=== PATIENT | female | born 1960 | race Caucasian/White ===

== ENCOUNTER → 2018-05-17 | Outpatient (CLI) | payer BC ==
[~2018-05-17] MED LIST: ARMOUR THYROID60 MG PO; ASPIR 8181 MG; BELVIQ PO; CEFUROXIME250 MG PO; GEMFIBROZIL600 MG PO; HYDROCHLOROTH12.5 MG PO; JANUVIA100 MG PO; LANTUS100 UNITS/ SC; LEVAQUIN500 MG PO; LEVEMIR100 UNIT/1 SQ; LOSARTAN-HCTZ1 EACH PO; METFORMIN HCL1000 MG PO; NOVOLIN R100 UNIT/1 SQ; NOVOLOG100 UNIT/1 SQ; OXYBUTYNIN CHLOR5 MG PO; PRAVASTATIN SOD40 MG PO; PROGESTERONE200 MG PO; TRULICITY SQ; VICTOZA SQ; VITAMIN D35000 UNIT PO; [UNRECOGNIZED DRUG - OTHER]; jenuvia PO; losartan PO; saxenda PO
--- NOTE | 2018-05-17 12:20 | Diagnostic Imaging Report ---
EXAM: CT Abdomen and Pelvis WITHOUT contrast INDICATION: Renal stone. COMPARISON: KUB 06/19/16. TECHNIQUE: Abdomen and pelvis were scanned utilizing a multidetector helical scanner from the lung base to the pubic symphysis without administration of IV contrast. Absence of intravenous contrast decreases sensitivity for detection of focal lesions and vascular pathology. Coronal and sagittal reformations were obtained. Renal stone protocol was performed. IV CONTRAST: None. RADIATION DOSE: Total DLP: 1162.4 mGy*cm COMPLICATIONS: None FINDINGS: LINES and TUBES: None. LOWER THORAX: Unremarkable HEPATOBILIARY: No focal hepatic lesions. No biliary ductal dilation. GALLBLADDER: No radio-opaque stones or sludge. No wall thickening. SPLEEN: No splenomegaly. PANCREAS: No focal masses or ductal dilatation. ADRENALS: No adrenal nodules KIDNEYS/URETERS: No hydronephrosis. No cystic or solid mass lesions. There is a 10 mm right lower pole renal stone and an adjacent 5 mm renal stone. There is a 2 mm punctate left mid pole renal stone. No evidence of ureteral stone. GI TRACT: No abnormal distention, wall thickening, or evidence of bowel obstruction. A small portion of the small bowel is excluded from the [id number]. Appendix is normal. PELVIC ORGANS/BLADDER: Unremarkable. LYMPH NODES: No lymphadenopathy. VESSELS: Moderate atherosclerotic changes within the abdominal aorta and branch vessels. PERITONEUM / RETROPERITONEUM: No free air or fluid. BONES/SOFT TISSUES: No acute bony abnormality. Moderate degenerative disc changes and grade 1 anterolisthesis of L5 on S1. IMPRESSION: Nonobstructing bilateral renal stones measuring up to 10 mm in the right lower pole and 2 mm in the left mid pole. Signed by: Dr. Khoa Pryor MD on 05/17/2018 12:16 PM
== END ==
LOC: CT 11:08
PROVIDERS: ATTEND Urology
DX: N20.0 Calculus of kidney (principal)
CPT/HCPCS: 74176

== ENCOUNTER → 2018-07-09 | Day surgery (SDC) | payer BC ==
[2018-07-07 17:44] LABS: ANION GAP 17.7 mmol/L (8-16); BLOOD UREA NITROGEN 25 mg/dL (7-26); BUN/CREATININE RATIO 30 (6-25); CALCIUM 10.5 mg/dL (8.4-10.2); CARBON DIOXIDE 23 mmol/L (22-29); CHLORIDE 99 mmol/L (98-107); CREATININE, SERUM 0.83 mg/dL (0.57-1.11); EST GLOMERULAR FILTRATION RATE > 60 ML/MIN (60-); GLUCOSE 112 mg/dL (74-118); POTASSIUM 3.7 mmol/L (3.5-5.1); SODIUM 136 mmol/L (136-145)
[~2018-07-09] MED LIST changes: +BELLADONNA/OPIUM 30 MG SUPP RC ONE; +CEFTRIAXONE SOD 1 GM/NS 50 ML 50 ML IV ONE; +DEXAMETHASONE SOD PHOS INJ 4 MG/ML VIAL ONE; +FENTANYL CITRATE/PF 100MCG/2 ML INJ ONE; +HUMALOG100 UNIT/3; +INSULIN REGULAR, HUMAN 100 UNIT/1 ML 3ML VIAL ONE; +IOPAMIDOL 610MG/1ML 300 MG/ML VIAL IV ONE; +LIDOCAINE HCL 2% LOCAL INJ 5 ML SDV VIAL INJ ONE; +METOCLOPRAMIDE HCL 10 MG/2ML VIAL ONE; +MIDAZOLAM HCL 2 MG/2 ML VIAL ONE; +ONDANSETRON HCL INJ 2MG/ML 2ML 2 MG/ML VIAL ONE; +PROPOFOL IV EMULSION 10 MG/ML 20 ML VIAL ONE; +SEVOFLURANE INHAL SOLN 250 ML PEN BTL ONE
--- OUTSIDE RECORDS SUMMARY | 2018-07-09 07:08 | XMS REPORT ---
Author Author Lora Silva [facility] eClinicalWorks Address Unknown Phone Unavailable Care Team Providers Care Department Store Door Greeter Name Role Phone Lora Silva CP Unavailable Allergies, Adverse Reactions, Alerts Substance Reaction Event Type Zolmitriptan Info Not Available Drug Allergy Problems Problem Type Condition Code Onset Dates Condition Status Assessment Type 2 diabetes mellitus with hyperglycemia E11.65 Active Problem Hypothyroidism, unspecified type E03.9 Active Problem Type 2 diabetes mellitus with mild nonproliferative diabetic retinopathy with macular edema, unspecified eye E11.3219 Active Assessment Morbid obesity E66.01 Active Assessment Mixed hyperlipidemia E78.2 Active Problem BMI 45.0-49.9, adult Z68.42 Active Problem Essential hypertension I10 Active Problem Morbid obesity E66.01 Active Problem Type 2 diabetes mellitus with hyperglycemia E11.65 Active Problem Other chronic pain G89.29 Active Problem 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 Z79.4 Active Problem Mixed hyperlipidemia E78.2 Active Medications Medication Code System Code Instructions Start Date End Date Status Dosage Trulicity 1.5mg [facility] 51581047820 1.5mg/0.5mL SQ once per week Mar 18, 2018 Active 1 Humalog KwikPen [facility] 86741539772 100 UNIT/ML Subcutaneous TID with meals Active 4 units Cinnamon ND 59113161190 500 MG Orally Active not defined Losartan Potassium-HCTZ ND 83461895555 50-12.5 MG Orally Once a day Active 1 tablet Vitamin D3 ND 22564708627 1000 UNIT Orally Once a day Active 1 capsule Lantus SoloStar ND 19618161416 100 UNIT/ML Subcutaneous daily Active 25 units Chromium Picolinate ND 53131164338 200 MCG Orally Active not defined Multivitamin [facility] 93604-65974 - Orally Active not defined Duexis [facility] 91780526100 800-26.6 MG Orally Three times a day Mar 18, 2018 Active 1 tablet CoQ-10 [facility] 38067898665 30 MG Orally Once a day Active 1 capsule with a meal Gemfibrozil [facility] 37492319396 600 MG Orally Twice a day Active 1 tablet Magnesium [facility] 75717105865 300 MG Orally Once a day Active 1 capsule with a meal Jardiance [facility] 92795432835 10 mg Orally Once a day Mar 18, 2018 Active 1 tablet Metformin HCl [facility] 30699608152 1000 mg Orally twice a day (bid) Active 1 tablet Retsof Thyroid [facility] 74121507190 90 MG Orally Once a day Active 1 tablet Vital Signs Date/Time: May 21, 2017 BMI 49.74 Index Weight 272 lbs Height 62 in Cardiac Monitoring Heart Rate 88 /min Blood Pressure Diastolic 76 mm Hg Blood Pressure Systolic 122 mm Hg Results No Known Results Summary Purpose eClinicalWorks Submission
--- OUTSIDE RECORDS SUMMARY | 2018-07-09 07:08 | XMS REPORT ---
Author Author Lora Silva [facility] eClinicalWorks Address Unknown Phone Unavailable Care Team Providers Care Wagon Person Name Role Phone Lora Silva CP Unavailable Allergies No Known Allergies Problems Problem Type Condition Code Onset Dates Condition Status Problem Type 2 diabetes mellitus with mild nonproliferative diabetic retinopathy with macular edema, unspecified eye E11.3219 Active Problem Other chronic pain G89.29 Active Problem Hypothyroidism, unspecified type E03.9 Active Assessment Type 2 diabetes mellitus with hyperglycemia E11.65 Active Problem Morbid obesity E66.01 Active Problem BMI 45.0-49.9, adult Z68.42 Active Problem Chronic fatigue R53.82 Active Problem Mixed hyperlipidemia E78.2 Active Problem Type 2 diabetes mellitus with hyperglycemia E11.65 Active Problem Essential hypertension I10 Active Problem superintendent terminal current use of insulin Z79.4 Active Medications Medication Code System Code Instructions Start Date End Date Status Dosage Humalog KwikPen [facility] [id number] 100 UNIT/ML Subcutaneous TID with meals Active 10 -15 units Results No Known Results Summary Purpose eClinicalWorks Submission
--- OUTSIDE RECORDS SUMMARY | 2018-07-09 07:08 | XMS REPORT ---
Author Author Lora Silva [facility] eClinicalWorks Address Unknown Phone Unavailable Care Team Providers Care Tooling Inspector Name Role Phone Lora Silva CP Unavailable Allergies No Known Allergies Problems Problem Type Condition Code Onset Dates Condition Status Problem Mixed hyperlipidemia E78.2 Active Problem Essential hypertension I10 Active Problem snf current use of insulin Z79.4 Active Problem History of kidney stones Z87.442 Active Problem Primary insomnia F51.01 Active Problem Diabetes mellitus with hyperglycemia E11.65 Active Problem Morbid obesity E66.01 Active Problem BMI 45.0-49.9, adult Z68.42 Active Problem Obstructive sleep apnea G47.33 Active Problem Chronic fatigue R53.82 Active Problem Type 2 diabetes mellitus with mild nonproliferative diabetic retinopathy with macular edema, unspecified eye E11.3219 Active Problem Hypothyroidism, unspecified type E03.9 Active Assessment Diabetes mellitus with hyperglycemia E11.65 Active Problem Other chronic pain G89.29 Active Problem Type 2 diabetes mellitus with hyperglycemia E11.65 Active Medications No Known Medications Results No Known Results Summary Purpose eClinicalWorks Submission
--- OUTSIDE RECORDS SUMMARY | 2018-07-09 07:08 | XMS REPORT | Continuity of Care Document ---
Author Author [facility] Interface Address Unknown Phone Unavailable Problems Problem Status Onset Date Classification Date Reported Comments Source Body mass index 40+ - severely obese 04/26/2018 Diagnosis 04/26/2018 [facility] Abnormal blood pressure 04/26/2018 Diagnosis 04/26/2018 [facility] Seasonal allergic rhinitis 04/26/2018 Diagnosis 04/26/2018 [facility] Acute maxillary sinusitis 04/26/2018 Diagnosis 04/26/2018 [facility] Diabetes Mellitus 04/26/2018 Problem 04/26/2018 [facility] Hypercholesterolemia 04/26/2018 Problem 04/26/2018 [facility] Hypertensive Disorder 04/26/2018 Problem 04/26/2018 [facility] Allergic rhinitis 06/17/2017 Diagnosis 06/17/2017 [facility] Hordeolum externum of upper eyelid 06/17/2017 Diagnosis 06/17/2017 [facility] Essential hypertension 06/17/2017 Diagnosis 06/17/2017 [facility] Hyperlipidemia 06/17/2017 Diagnosis 06/17/2017 [facility] Type 2 diabetes mellitus without complication 06/17/2017 Diagnosis 06/17/2017 [facility] Type 2 diabetes mellitus with hyperglycemia Active Problem 07/08/2018 [facility] Hypothyroidism, unspecified type Active Problem 07/08/2018 [facility] Type 2 diabetes mellitus with mild nonproliferative diabetic retinopathy with macular edema, unspecified eye Active Problem 07/08/2018 [facility] Essential hypertension Active Problem 07/08/2018 [facility] Obesity, morbid, BMI 40.0-49.9 Active Problem 05/21/2017 [facility] BMI 45.0-49.9, adult Active Problem 07/08/2018 [facility] Other chronic pain Active Problem 07/08/2018 [facility] prison current use of insulin Active Problem 07/08/2018 [facility] Mixed hyperlipidemia Active Problem 07/08/2018 [facility] Morbid obesity Active Problem 07/08/2018 [facility] Chronic fatigue Active Problem 07/08/2018 [facility] Obstructive sleep apnea Active Problem 07/08/2018 [facility] Hordeolum of left eye, unspecified eyelid, unspecified hordeolum type Active Diagnosis 06/27/2017 [facility] Tachycardia Active Diagnosis 10/06/2017 [facility] Vomiting, intractability of vomiting not specified, presence of nausea not specified, unspecified vomiting type Active Diagnosis 10/06/2017 [facility] Gastroenteritis Active Diagnosis 10/06/2017 [facility] Primary insomnia Active Problem 07/08/2018 [facility] History of kidney stones Active Problem 07/08/2018 [facility] Diabetes mellitus with hyperglycemia Active Problem 07/08/2018 [facility] Left medial knee pain Active Diagnosis 03/24/2018 [facility] Acute Sinusitis Problem 06/17/2017 [facility] Acute Pharyngitis Problem 06/17/2017 [facility] Medications Medication Details Route Status Patient Instructions Ordering Provider Order Date Source Trulicity 1.5mg 1.5mg/1 pen SQ Active 1.5mg/0.5mL SQ Once a week Benavides 07/07/2018 [facility] Needle (Disp) as directed DX:E11.65 Active 31G X 5/16" DX:E11.65 four times a day (qid) Carlos 06/11/2018 [facility] Tizanidine HCl 1 tablet by mouth Active 4 mg by mouth once every night Carlos 03/23/2018 [facility] Trulicity 1.5mg 1 SQ Active 1.5mg/0.5mL SQ once per week Carlos 03/18/2018 [facility] Duexis 1 tablet Orally Active 800-26.6 MG Orally PRN Carlos 03/18/2018 [facility] Jardiance 1 tablet Orally Active 10 mg Orally Once a day Carlos 03/18/2018 [facility] HydrOXYzine HCl 1 tablet as needed Orally Active 10 mg Orally at HS PRN Carlos 02/25/2018 [facility] Tobramycin Sulfate 1 application Ophthalmic Active 0.3 % Ophthalmic Twice a day to affected eye Carlos 06/24/2017 [facility] Humalog KwikPen 10 -15 units Subcutaneous Active 100 UNIT/ML Subcutaneous TID with meals Carlos [facility] Cinnamon not defined Orally Active 500 MG Orally Carlos [facility] Losartan Potassium-HCTZ 1 tablet Orally Active 50-12.5 MG Orally Once a day Carlos [facility] Vitamin D3 1 capsule Orally Active 1000 UNIT Orally Once a day Carlos [facility] Lantus SoloStar 14 units Subcutaneous Active 100 UNIT/ML Subcutaneous twice a day (bid) Carlos [facility] Chromium Picolinate not defined Orally Active 200 MCG Orally Carlos [facility] Multivitamin not defined Orally Active - Orally Carlos [facility] CoQ-10 1 capsule with a meal Orally Active 30 MG Orally Once a day Carlos [facility] Gemfibrozil 1 tablet Orally Active 600 MG Orally Twice a day Carlos [facility] Magnesium 1 capsule with a meal Orally Active 300 MG Orally Once a day Carlos [facility] Metformin HCl 1 tablet Orally Active 1000 mg Orally twice a day (bid) Carlos [facility] [place] Thyroid 1 tablet Orally Active 90 MG Orally Once a day Carlos [facility] Erythromycin 1 application to affected area Externally Active 2 % Externally four times a day Ferdinand Ortiz [facility] Humalog KwikPen 10 -15 units Subcutaneous Active 100 UNIT/ML Subcutaneous TID with meals Ferdinand Ortiz [facility] HydrOXYzine HCl 1 tablet as needed Orally Active 10 mg Orally at HS PRN Carlos [facility] thyroid (PRISON) 90 MG Oral Tablet [[place] Thyroid] [place] Thyroid 90 mg tablet TK 1 T PO QD Active [facility] armour thyroid 90 mg tabs armour thyroid 90 mg tabs Active [facility] Amoxicillin 875 MG / Clavulanate 125 MG Oral Tablet [Augmentin] Augmentin 875 mg-125 mg tablet Take 1 tablet every 12 hours by oral route after meals for 7 days. Active [facility] Azelastine hydrochloride 0.5 MG/ML Ophthalmic Solution azelastine 0.05 % eye drops INSTILL 1 DROP INTO BOTH EYES BY OPHTHALMIC ROUTE 2 TIMES PER DAY x 10 DAYS Active [facility] azelastine hcl 0.1 % soln azelastine hcl 0.1 % soln Active [facility] Famotidine 26.6 MG / Ibuprofen 800 MG Oral Tablet [Duexis] Duexis 800 mg-26.6 mg tablet Active [facility] fluticasone propionate 50 mcg/act susp fluticasone propionate 50 mcg/act susp Active [facility] Gemfibrozil 600 MG Oral Tablet gemfibrozil 600 mg tablet TK 1 T PO BID Active [facility] gemfibrozil 600 mg tabs gemfibrozil 600 mg tabs Active [facility] 3 ML Insulin Lispro 100 UNT/ML Pen Injector [Humalog] Humalog KwikPen (U-100) Insulin 100 unit/mL subcutaneous INJ 10 -15 UNITS UNDER THE SKIN TID WITH MEALS Active [facility] humalog kwikpen 100 unit/ml sopn humalog kwikpen 100 unit/ml sopn Active [facility] Hydroxyzine Hydrochloride 10 MG Oral Tablet hydroxyzine HCl 10 mg tablet TK 1 T PO HS PRN Active [facility] hydroxyzine hcl 10 mg tabs hydroxyzine hcl 10 mg tabs Active [facility] empagliflozin 10 MG Oral Tablet [Jardiance] Jardiance 10 mg tablet TK 1 T PO QD Active [facility] jardiance 10 mg tabs jardiance 10 mg tabs Active [facility] lantus solostar 100 unit/ml sopn lantus solostar 100 unit/ml sopn Active [facility] 3 ML Insulin Glargine 100 UNT/ML Pen Injector [Lantus] Lantus Solostar U-100 Insulin 100 unit/mL (3 mL) subcutaneous pen USE 25 UNITS SC QD Active [facility] Hydrochlorothiazide 12.5 MG / Losartan Potassium 50 MG Oral Tablet losartan 50 mg-hydrochlorothiazide 12.5 mg tablet TK 1 T PO QD Active [facility] losartan/hct tab 50-12.5 losartan/hct tab 50-12.5 Active [facility] Metformin hydrochloride 1000 MG Oral Tablet metformin 1,000 mg tablet TK 1 T PO BID Active [facility] metformin hcl 1000 mg tabs metformin hcl 1000 mg tabs Active [facility] tizanidine 4 MG Oral Tablet tizanidine 4 mg tablet TK 1 T PO Q NIGHT Active [facility] tizanidine hcl 4 mg tabs tizanidine hcl 4 mg tabs Active [facility] 0.5 ML dulaglutide 3 MG/ML Auto-Injector [Trulicity] Trulicity 1.5 mg/0.5 mL subcutaneous pen injector INJECT THE CONTENTS OF 1 PEN UNDER THE SKIN ONCE A WEEK Active [facility] trulicity 1.5 mg/0.5ml sopn trulicity 1.5 mg/0.5ml sopn Active [facility] Acetaminophen 300 MG / Codeine Phosphate 30 MG Oral Tablet acetaminophen 300 mg-codeine 30 mg tablet TK ONE TABLET PO EVERY 4 HOURS PRN FOR PAIN Active [facility] Azelastine hydrochloride 0.137 MG/ACTUAT Metered Dose Nasal [place] azelastine 137 mcg (0.1 %) nasal spray aerosol [place] 2 sprays twice a day by intranasal route as directed for 30 days. Active [facility] BD Insulin Pen Needle UF Short 31 gauge x 5/16" BD Insulin Pen Needle UF Short 31 gauge x 5/16" U UTD QID Active [facility] Erythromycin 0.005 MG/MG Ophthalmic Ointment erythromycin 5 mg/gram (0.5 %) eye ointment APPLY 1 CM RIBBON INTO AND ONTO THE UPPER EYELID IN THE AFFECTED EYE(S) BY OPHTHALMIC ROUTE 4 TIMES PER DAY x 7 days Active [facility] Fluticasone propionate 0.05 MG/ACTUAT Metered Dose Nasal [place] fluticasone 50 mcg/actuation nasal spray,suspension [place] 2 sprays every day by intranasal route as needed for 10 days. Active [facility] NovoTwist 32 gauge x 1/5" needle NovoTwist 32 gauge x 1/5" needle Active [facility] tizanidine 4 MG Oral Capsule tizanidine 4 mg capsule TAKE 1 C PO TID PRN Active [facility] Allergies, Adverse Reactions, Alerts Substance Category Reaction Severity Reaction type Status Date Reported Comments Source Tagamet Allergy to substance 05/04/2013 [facility] Zomig Allergy to substance 05/04/2013 [facility] Zolmitriptan Adverse Reaction Info Not Available Adverse Reaction Active 03/22/2018 [facility] Immunizations Immunization Date Given Site Status Last Updated Comments Source Results Order Name Results Value Reference Range Date Interpretation Comments Source Influenza A negative 04/26/2018 [facility] Influenza B negative 04/26/2018 [facility] Vital Signs Vital Sign Value Date Comments Source Diastolic (mm Hg) 86 04/26/2018 [facility] Height 62 04/26/2018 [facility] Systolic (mm Hg) 132 04/26/2018 [facility] Weight 277 04/26/2018 [facility] Weight 280 03/22/2018 [facility] Height 62 03/22/2018 [facility] Heart Rate 90 03/22/2018 [facility] Diastolic (mm Hg) 86 03/22/2018 [facility] Systolic (mm Hg) 124 03/22/2018 [facility] Weight 272 02/25/2018 [facility] Height 62 02/25/2018 [facility] Heart Rate 102 02/25/2018 [facility] Diastolic (mm Hg) 64 02/25/2018 [facility] Systolic (mm Hg) 100 02/25/2018 [facility] Weight 278 10/01/2017 [facility] Height 62 10/01/2017 [facility] Temperature Oral (F) 98.7 F 10/01/2017 [facility] Heart Rate 107 10/01/2017 [facility] Diastolic (mm Hg) 66 10/01/2017 [facility] Systolic (mm Hg) 110 10/01/2017 [facility] Diastolic (mm Hg) 70 06/24/2017 [facility] Systolic (mm Hg) 128 06/24/2017 [facility] Height 62 06/24/2017 [facility] Heart Rate 107 06/24/2017 [facility] Diastolic (mm Hg) 84 06/17/2017 [facility] Height 62 06/17/2017 [facility] Systolic (mm Hg) 128 06/17/2017 [facility] Weight 265 06/17/2017 [facility] Weight 272 05/21/2017 [facility] Height 62 05/21/2017 [facility] Heart Rate 88 05/21/2017 [facility] Diastolic (mm Hg) 76 05/21/2017 [facility] Systolic (mm Hg) 122 05/21/2017 [facility] Encounters Location Location Details Encounter Type Encounter Number Reason For Visit Attending Provider ADM Date DC Date Status Source [place] - [facility] - [id number] ANN SorensenP-C[facility] [address] [address], Ph. [id number] Lois Santillan 06/17/2017 [facility] [place] [facility] - [id number] Marion Dinh, MECHANICAL ENGINEERING OFFICER: [address] [place] [address], Ph. [id number] Marion Dinh 04/26/2018 [facility] Procedures Procedure Code Date Perfomer Comments Source [facility] Tonsillectomy [facility]
--- OUTSIDE RECORDS SUMMARY | 2018-07-09 07:08 | XMS REPORT ---
Author Author Lora Silva [facility] eClinicalWorks Address Unknown Phone Unavailable Care Team Providers Care Solar Sales Energy Advisor Name Role Phone Lora Silva CP Unavailable Allergies No Known Allergies Problems Problem Type Condition Code Onset Dates Condition Status Assessment Type 2 diabetes mellitus with hyperglycemia E11.65 Active Problem Hypothyroidism, unspecified type E03.9 Active Problem Type 2 diabetes mellitus with mild nonproliferative diabetic retinopathy with macular edema, unspecified eye E11.3219 Active Problem Essential hypertension I10 Active Problem Obesity, morbid, BMI 40.0-49.9 E66.01 Active Problem BMI 45.0-49.9, adult Z68.42 Active Problem Type 2 diabetes mellitus with hyperglycemia E11.65 Active Problem Other chronic pain G89.29 Active Problem terminal worker current use of insulin Z79.4 Active Problem Mixed hyperlipidemia E78.2 Active Medications No Known Medications Results No Known Results Summary Purpose [facility] [employer] Submission
--- OUTSIDE RECORDS SUMMARY | 2018-07-09 07:08 | XMS REPORT ---
Author Author Gerhard Gonzalez Organization eClinicalWorks Address Unknown Phone Unavailable Care Team Providers Care Materials Director Name Role Phone Gerhard Gonzalez CP Unavailable Allergies No Known Allergies Problems Problem Type Condition Code Onset Dates Condition Status Problem Mixed hyperlipidemia E78.2 Active Problem Essential hypertension I10 Active Problem roasterman current use of insulin Z79.4 Active Problem [...] Problem Hypothyroidism, unspecified type E03.9 Active Problem Other chronic pain G89.29 Active Problem Type 2 diabetes mellitus with hyperglycemia E11.65 Active Medications Medication Code System Code Instructions Start Date End Date Status Dosage Trulicity 1.5mg [facility] [id number] 1.5mg/0.5mL SQ Once a week Jul 07, 2018 Jan 03, 2019 Active 1.5mg/1 pen Results No Known Results Summary Purpose eClinicalWorks Submission
--- OUTSIDE RECORDS SUMMARY | 2018-07-09 07:09 | XMS REPORT ---
Author Gerhard Coats Organization eClinical[employer] Address Unknown Phone Unavailable Care Team Providers Care Technology Resource Teacher Name Role Phone Gerhard Gonzalez CP Unavailable Allergies, Adverse Reactions, Alerts Substance Reaction Event Type Zolmitriptan Info Not Available Drug Allergy Problems Problem Type Condition Code Onset Dates Condition Status Problem Other chronic pain G89.29 Active Problem Mixed hyperlipidemia E78.2 Active Problem Type 2 diabetes mellitus with hyperglycemia E11.65 Active Problem Obstructive sleep apnea G47.33 Active Problem Chronic fatigue R53.82 Active Problem Primary insomnia F51.01 Active Problem Essential hypertension I10 Active Problem 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 Z79.4 Active Problem Morbid obesity E66.01 Active Problem BMI 45.0-49.9, adult Z68.42 Active Assessment Essential hypertension I10 Active Assessment BMI 45.0-49.9, adult Z68.42 Active Assessment Primary insomnia F51.01 Active Assessment Hypothyroidism, unspecified type E03.9 Active Assessment 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 Z79.4 Active Assessment Type 2 diabetes mellitus with hyperglycemia E11.65 Active Assessment Chronic fatigue R53.82 Active Problem Type 2 diabetes mellitus with mild nonproliferative diabetic retinopathy with macular edema, unspecified eye E11.3219 Active Assessment Obstructive sleep apnea G47.33 Active Problem Hypothyroidism, unspecified type E03.9 Active Medications Medication Code System Code Instructions Start Date End Date Status Dosage [place] Thyroid [facility] 61383890391 90 MG Orally Once a day Active 1 tablet Losartan Potassium-HCTZ ND 44136759713 50-12.5 MG Orally Once a day Active 1 tablet Cinnamon ND 29994462487 500 MG Orally Active not defined Duexis [facility] 83691293704 800-26.6 MG Orally PRN Mar 18, 2018 Active 1 tablet Trulicity 1.5mg [facility] 47644997877 1.5mg/0.5mL SQ once per week Mar 18, 2018 Active 1 HydrOXYzine HCl [facility] 75281445471 10 mg Orally at HS PRN Feb 25, 2018 Active 1 tablet as needed Jardiance NDC 65033863904 10 mg Orally Once a day Mar 18, 2018 Active 1 tablet Multivitamin [facility] [address] - Orally Active not defined Vitamin D3 [facility] 62202922291 1000 UNIT Orally Once a day Active 1 capsule Magnesium [facility] 07943381826 300 MG Orally Once a day Active 1 capsule with a meal CoQ-10 [facility] 66684007314 30 MG Orally Once a day Active 1 capsule with a meal Metformin HCl [facility] 26464134663 1000 mg Orally twice a day (bid) Active 1 tablet Lantus SoloStar [facility] 26050169624 100 UNIT/ML Subcutaneous daily Active 25 units Chromium Picolinate [facility] 71006676746 200 MCG Orally Active not defined Humalog KwikPen [facility] 34139009127 100 UNIT/ML Subcutaneous TID with meals Active 10 -15 units Gemfibrozil [facility] 36392764593 600 MG Orally Twice a day Active 1 tablet Humalog KwikPen [facility] 44291033840 100 UNIT/ML Subcutaneous TID with meals Active 10 -15 units Tobramycin Sulfate [facility] [address]-94 0.3 % Ophthalmic Twice a day to affected eye Jun 24, 2017 Active 1 application Vital Signs Date/Time: Feb 25, 2018 BMI 49.74 Index Weight 272 lbs Height 62 in Cardiac Monitoring Heart Rate 102 /min Blood Pressure Diastolic 64 mm Hg Blood Pressure Systolic 100 mm Hg Results No Known Results Summary Purpose eClinicalWorks Submission
--- OUTSIDE RECORDS SUMMARY | 2018-07-09 07:09 | XMS REPORT ---
Author Author Gerhard Gonzalez Organization [employer] Address Unknown Phone Unavailable Care Team Providers Care Machine Shorthand Teacher Name Role Phone Gerhard Gonzalez CP Unavailable Allergies, Adverse Reactions, Alerts Substance Reaction Event Type Zolmitriptan Info Not Available Drug Allergy Problems Problem Type Condition Code Onset Dates Condition Status Problem Type 2 diabetes mellitus with hyperglycemia E11.65 Active Problem senior living current use of insulin Z79.4 Active Problem Mixed hyperlipidemia E78.2 Active Problem Primary insomnia F51.01 Active Assessment Hypothyroidism, unspecified type E03.9 Active Problem Obstructive sleep apnea G47.33 Active Assessment Primary insomnia F51.01 Active Assessment Mixed hyperlipidemia E78.2 Active Problem History of kidney stones Z87.442 Active Problem BMI 45.0-49.9, adult Z68.42 Active Problem Essential hypertension I10 Active Problem Chronic fatigue R53.82 Active Problem Morbid obesity E66.01 Active Assessment Chronic fatigue R53.82 Active Assessment Obstructive sleep apnea G47.33 Active Assessment Essential hypertension I10 Active Assessment BMI 45.0-49.9, adult Z68.42 Active Problem Type 2 diabetes mellitus with mild nonproliferative diabetic retinopathy with macular edema, unspecified eye E11.3219 Active Assessment Left medial knee pain M25.562 Active 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.4 Active Problem Hypothyroidism, unspecified type E03.9 Active Assessment History of kidney stones Z87.442 Active Assessment Type 2 diabetes mellitus with hyperglycemia E11.65 Active Problem Other chronic pain G89.29 Active Medications Medication Code System Code Instructions Start Date End Date Status Dosage Magnesium [facility] 12650456456 300 MG Orally Once a day Active 1 capsule with a meal Gemfibrozil [facility] 87780037133 600 MG Orally Twice a day Active 1 tablet Chromium Picolinate [facility] 80581659388 200 MCG Orally Active not defined Tobramycin Sulfate [facility] [address]-30 0.3 % Ophthalmic Twice a day to affected eye Jun 24, 2017 Active 1 application Metformin HCl [facility] 21264083075 1000 mg Orally twice a day (bid) Active 1 tablet HydrOXYzine HCl [facility] 48405554226 10 mg Orally at HS PRN Active 1 tablet as needed [place] Thyroid [facility] 54197391674 90 MG Orally Once a day Active 1 tablet Multivitamin [facility] 59645-[address]38 - Orally Active not defined Vitamin D3 [facility] 80841032685 1000 UNIT Orally Once a day Active 1 capsule Humalog KwikPen [facility] 93344374953 100 UNIT/ML Subcutaneous TID with meals Active 10 -15 units Losartan Potassium-HCTZ [facility] 02300389051 50-12.5 MG Orally Once a day Active 1 tablet CoQ-10 [facility] 74620737314 30 MG Orally Once a day Active 1 capsule with a meal Lantus SoloStar [facility] 93637919996 100 UNIT/ML Subcutaneous twice a day (bid) Active 14 units Cinnamon [facility] 41996342555 500 MG Orally Active not defined Vital Signs Date/Time: Mar 22, 2018 BMI 51.21 Index Weight 280 lbs Height 62 in Cardiac Monitoring Heart Rate 90 /min Blood Pressure Diastolic 86 mm Hg Blood Pressure Systolic 124 mm Hg Results No Known Results Summary Purpose eClinicalWorks Submission
--- OUTSIDE RECORDS SUMMARY | 2018-07-09 07:09 | XMS REPORT ---
Author Author Lora Silva [facility] eClinicalWorks Address Unknown Phone Unavailable Care Team Providers Care Owner/Photographer Name Role Phone Lora Silva CP Unavailable Allergies No Known Allergies Problems Problem Type Condition Code Onset Dates Condition Status Problem Type 2 diabetes mellitus with hyperglycemia E11.65 Active Problem residential current use of insulin Z79.4 Active Problem Mixed hyperlipidemia E78.2 Active Problem Primary insomnia F51.01 Active Problem Obstructive sleep apnea G47.33 Active Problem History of kidney stones Z87.442 Active Problem BMI 45.0-49.9, adult Z68.42 Active Problem Essential hypertension I10 Active Problem Chronic fatigue R53.82 Active Problem Morbid obesity E66.01 Active Problem Type 2 diabetes mellitus with mild nonproliferative diabetic retinopathy with macular edema, unspecified eye E11.3219 Active Problem Hypothyroidism, unspecified type E03.9 Active Problem Other chronic pain G89.29 Active Medications No Known Medications Results No Known Results Summary Purpose eClinicalWorks Submission
--- OUTSIDE RECORDS SUMMARY | 2018-07-09 07:09 | XMS REPORT ---
Author Author Lora Silva [facility] eClinicalWorks Address Unknown Phone Unavailable Care Team Providers Care Parish Worker Name Role Phone Lora Silva CP Unavailable Allergies No Known Allergies Problems Problem Type Condition Code Onset Dates Condition Status Problem Type 2 diabetes mellitus with hyperglycemia E11.65 Active Problem alf current use of insulin Z79.4 Active Problem [...]
--- OUTSIDE RECORDS SUMMARY | 2018-07-09 07:09 | XMS REPORT ---
Author [facility] Address Unknown Phone Unavailable Care Team Providers Care Sheet Metal Assembler Name Role Phone DELANEY RANDOLPH Unavailable Unavailable Problems This patient has no known problems. Allergies, Adverse Reactions, Alerts This patient has no known allergies or adverse reactions. Medications This patient has no known medications. Results Test Description Test Time Test Comments Text Results Atomic Results Result Comments CT ABDOMEN/PELVIS WO 2018-05-17 12:09:00 [place] [address] Patient Name: MYA SIDDIQUI MR #: [id number] : 1960 Age/Sex: 57/F Req #: [id number] [facility] Physician: Ordered by: DELANEY RANDOLPH MD Report #: [id number] Location: CT Room/Bed: Procedure: [id number] CT/CT ABDOMEN/PELVIS WO Exam Date: 05/17/18 Exam Time: 1150 REPORT STATUS: Signed EXAM: CT Abdomen and Pelvis WITHOUT contrast INDICATION: Renal stone. COMPARISON: KUB 06/19/16. TECHNIQUE: Abdomen and pelvis were scanned utilizing a multidetector helical scanner from the lung base to the pubic symphysis without administration of IV contrast. Absence of intravenous contrast decreases sensitivity for detection of focal lesions and vascular pathology. Coronal and sagittal reformations were obtained. Renal stone protocol was performed. IV CONTRAST: None. RADIATION DOSE: Total DLP: 1162.4 mGy*cm COMPLICATIONS: None FINDINGS: LINES and TUBES: None. LOWER THORAX: Unremarkable HEPATOBILIARY: No focal hepatic lesions. No biliary ductal dilation. GALLBLADDER: No radio-opaque stones or sludge. No wall thickening. SPLEEN: No splenomegaly. PANCREAS: No focal masses or ductal dilatation. ADRENALS: No adrenal nodules KIDNEYS/URETERS: No hydronephrosis. No cystic or solid mass lesions. There is a 10 mm right lower pole renal stone and an adjacent 5 mm renal stone. There is a 2 mm punctate left mid pole renal stone. No evidence of ureteral stone. GI TRACT: No abnormal distention, wall thickening, or evidence of bowel obstruction. A small portion of the small bowel is excluded from the lxpiq-eb-xfjc. Appendix is normal. PELVIC ORGANS/BLADDER: Unremarkable. LYMPH NODES: No lymphadenopathy. VESSELS: Moderate atherosclerotic changes within the abdominal aorta and branch vessels. PERITONEUM / RETROPERITONEUM: No free air or fluid. BONES/SOFT TISSUES: No acute bony abnormality. Moderate degenerative disc changes and grade 1 anterolisthesis of L5 on S1. IMPRESSION: Nonobstructing bilateral renal stones measuring up to 10 mm in the right lower pole and 2 mm in the left mid pole. Signed by: Dr. Sancho Ragland MD on 05/17/2018 12:16 PM Dictated By: SANCHO RAGLAND MD [id number] Transcribed By: SADI on 05/17/18 1216 COPY TO: DELANEY RANDOLPH MD
--- OUTSIDE RECORDS SUMMARY | 2018-07-09 07:09 | XMS REPORT ---
Author Author Lora Silva [facility] eClinicalWorks Address Unknown Phone Unavailable Care Team Providers Care Automation Developer Name Role Phone Lora Silva CP Unavailable Allergies No Known Allergies Problems Problem Type Condition Code Onset Dates Condition Status Problem Type 2 diabetes mellitus with hyperglycemia E11.65 Active Problem care home current use of insulin Z79.4 Active Problem [...]
--- OUTSIDE RECORDS SUMMARY | 2018-07-09 07:09 | XMS REPORT ---
Author Author Lora Silva [facility] eClinicalWorks Address Unknown Phone Unavailable Care Team Providers Care Food And Beverage Order Clerk Name Role Phone Lora Silva CP Unavailable Allergies No Known Allergies Problems Problem Type Condition Code Onset Dates Condition Status Problem Type 2 diabetes mellitus with hyperglycemia E11.65 Active Problem terminal worker current use of [...] Medications Results No Known Results Summary Purpose [employer] Submission
--- OUTSIDE RECORDS SUMMARY | 2018-07-09 07:09 | XMS REPORT | Encounter Summary ---
Author Organization Unknown Address [address] [place] [address] Phone [phone] Care Team Providers Care Printing Machine Operator Tape Rules Name Role Phone Lora Aden 3 [phone] Reason for Visit Medical Complaint Instructions 1. Acute maxillary sinusitis rapid flu (A+B) Augmentin 875 mg-125 mg tablet 2. Seasonal allergic rhinitis azelastine 0.05 % eye drops 3. Abnormal blood pressure 4. Body mass index 40+ - severely obese A healthy lifestyle: care instructions Discussion Note: None recorded. Plan of Care Patient Instructions Ok to use flonase and azelastine nasal spray at home as directed by your pcp. Ok to take zyrtec 10mg daily x 7-14 days for allergies. If not improve [id number], call clinic or see pcp. Continue to check your bp at home. If trend over 140s/90s, follow up with pcp. Reminders Provider Appointments None recorded. Lab Rapid Flu (A+B) 04/26/2018 [facility] Referral None recorded. Procedures None recorded. Surgeries None recorded. Imaging None recorded. Medications Name Start Date [place] Thyroid 90 mg tablet TK 1 T PO QD armour thyroid 90 mg tabs Augmentin 875 mg-125 mg tablet Take 1 tablet every 12 hours by oral route after meals for 7 days. azelastine 0.05 % eye drops INSTILL 1 DROP INTO BOTH EYES BY OPHTHALMIC ROUTE 2 TIMES PER DAY x 10 DAYS azelastine hcl 0.1 % soln Duexis 800 mg-26.6 mg tablet fluticasone propionate 50 mcg/act susp gemfibrozil 600 mg tablet TK 1 T PO BID gemfibrozil 600 mg tabs Humalog KwikPen (U-100) Insulin 100 unit/mL subcutaneous INJ 10 -15 UNITS UNDER THE SKIN TID WITH MEALS humalog kwikpen 100 unit/ml sopn hydroxyzine HCl 10 mg tablet TK 1 T PO HS PRN hydroxyzine hcl 10 mg tabs Jardiance 10 mg tablet TK 1 T PO QD jardiance 10 mg tabs lantus solostar 100 unit/ml sopn Lantus Solostar U-100 Insulin 100 unit/mL (3 mL) subcutaneous pen USE 25 UNITS SC QD losartan 50 mg-hydrochlorothiazide 12.5 mg tablet TK 1 T PO QD losartan/hct tab 50-12.5 metformin 1,000 mg tablet TK 1 T PO BID metformin hcl 1000 mg tabs tizanidine 4 mg tablet TK 1 T PO Q NIGHT tizanidine hcl 4 mg tabs Trulicity 1.5 mg/0.5 mL subcutaneous pen injector INJECT THE CONTENTS OF 1 PEN UNDER THE SKIN ONCE A WEEK trulicity 1.5 mg/0.5ml sopn Medications Administered None recorded. Vitals Height Weight BMI Blood Pressure 5 ft 2 in 277 lbs 50.7 kg/m2 (1) 132/84 mm[Hg] (2) 132/86 mm[Hg] Lab Results Date Name Specimen Result Interpretation Description Value Range Status Address Rapid Flu (A+B) Influenza a negative [facility]: [address] [place] [address] Influenza B negative [facility]: [address] [place] [address] Allergies Code Code System Name Reaction Severity Status Onset Tagamet Active 849177 RxNorm Zomig Active Problems Name Status Onset Date Source Diabetes Mellitus Active 04/26/2018 Hypercholesterolemia Active 04/26/2018 Hypertensive Disorder Active 04/26/2018 Procedures Date Name Performed by Information not available Tonsillectomy Information not available Vaccine List None recorded. Social History Smoking Status Never Smoker Past Encounters 04/26/2018 Acute Maxillary Sinusitis; Seasonal Allergic Rhinitis; Abnormal Blood Pressure; Body Mass Index 40+ - Severely Obese MARY ANN [facility]acock[facility]: [address] [facility] [place] [address], Ph. History of Present Illness Nrkoz-Pxgpxydxvl-[id number] Reported By: Patient HPI: Location: head/sinuses. Quality: productive cough, colored phlegm, nasal/sinus congestion. Duration: 5days. Severity: moderate. Onset/Timing: sudden. Context: no sick contacts, no foreign travel, non-smoker, allergies. Modifying factors: OTC medication. Associated Symptoms: no shortness of breath, no wheezing, no change in number of pillows needed to sleep at night, no sweats, no significant weight gain, no significant weight loss, no morning cough, no sore throat, no vomiting, no diarrhea, no rash, no nausea, no fever, no muscle aches, yellow- green, thick sputum, headache; itchy eyes Review of Systems Basic Reported By: Patient Constitutional: Constitutional: no fever Eyes: Eyes: irritation Ohre-Fyml-Quxxa-Throat: Ears: no ear complaints. Nose: nose/sinus problems. Mouth/Throat: no sore throat, no bleeding gums, no mouth complaints, no teeth problems Cardiovascular: Cardiovascular: no chest pain, no shortness of breath, no known heart murmur Respiratory: Respiratory: no wheezing, no shortness of breath, cough Gastrointestinal: Gastrointestinal: no abdominal pain, no vomiting / diarrhea Genitourinary: Genitourinary: no urinary complaints, no discharge Musculoskeletal: Musculoskeletal: no muscle aches, no muscle weakness, no arthralgias/joint pain, no back pain Skin: Skin: no abnormal / changing mole, no jaundice, no rashes Neurologic: Neurologic: no loss of consciousness, no weakness, no numbness, no seizures, no dizziness, no headaches, headache Physical Exam Adult Basic, 14-21 Yr Male, Adult Female Complete Reported By: Patient Constitutional: General Appearance: obese. Level of Distress: NAD Psychiatric: Mental Status: active and alert, normal affect, normal mood. Orientation: to time, to place, to person Eyes: Lids and Conjunctivae: non-injected, no discharge. Pupils: equal size, round, reactive to light. Sclerae: non-icteric Oxa-Duaf-Xqnsu-Throat: Ears: no lesions on external ear, no outer ear tenderness, EACs clear, TMs clear, middle ear fluid. Nose: no lesions on external nose, nares patent, no septal deviation, nasal passages clear, sinus tenderness, nasal discharge--purulent, post nasal drip. Lips, Teeth, and Gums: no mouth or lip ulcers, no bleeding gums, normal dentition. Oropharynx: moist mucous membranes, no erythema, no exudates, tonsils absent Neck: Neck: supple, trachea midline, no masses, FROM. Lymph Nodes: no cervical LAD, no supraclavicular LAD. Thyroid: no enlargement, non-tender, no nodules, no asymmetry Lungs: Respiratory effort: no tachypnea. Auscultation: clear to auscultation, no wheezing, no rales/crackles, no rhonchi, no retractions Cardiovascular: Heart Auscultation: no murmurs, no gallops, no rub. Apical impulse: not displaced. Rate and rhythm: regular
--- OUTSIDE RECORDS SUMMARY | 2018-07-09 07:09 | XMS REPORT ---
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
--- OUTSIDE RECORDS SUMMARY | 2018-07-09 07:09 | XMS REPORT ---
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
--- OUTSIDE RECORDS SUMMARY | 2018-07-09 07:09 | XMS REPORT ---
Author Author Lora Silva [facility] [place] eClinicalWorks Address Unknown Phone Unavailable Care Team Providers Care Spectrographic Analyst Name Role Phone Lora Silva CP Unavailable Allergies, Adverse Reactions, Alerts Substance Reaction Event Type Zolmitriptan Info Not Available Drug Allergy Problems Problem Type Condition Code Onset Dates Condition Status Assessment Essential hypertension I10 Active Problem Hypothyroidism, unspecified type E03.9 Active Problem Type 2 diabetes mellitus with mild nonproliferative diabetic retinopathy with macular edema, unspecified eye E11.3219 Active Problem BMI 45.0-49.9, adult Z68.42 Active Problem Essential hypertension I10 Active Problem Morbid obesity E66.01 Active Problem Type 2 diabetes mellitus with hyperglycemia E11.65 Active Problem Other chronic pain G89.29 Active Problem prison current use of insulin Z79.4 Active Problem Mixed hyperlipidemia E78.2 Active Assessment Mixed hyperlipidemia E78.2 Active Assessment Hypothyroidism, unspecified type E03.9 Active Assessment Type 2 diabetes mellitus with mild nonproliferative diabetic retinopathy with macular edema, unspecified eye E11.3219 Active Assessment Hordeolum of left eye, unspecified eyelid, unspecified hordeolum type H00.016 Active Assessment Type 2 diabetes mellitus with hyperglycemia E11.65 Active Medications Medication Code System Code Instructions Start Date End Date Status Dosage Gemfibrozil [facility] 63794948588 600 MG Orally Twice a day Active 1 tablet Lantus SoloStar [facility] 93221254927 100 UNIT/ML Subcutaneous daily Active 25 units Chromium Picolinate [facility] 91825932146 200 MCG Orally Active not defined [place] Thyroid ND 86362377179 90 MG Orally Once a day Active 1 tablet Multivitamin [facility] 25[address]88 - Orally Active not defined Humalog KwikPen [facility] 10594062614 100 UNIT/ML Subcutaneous TID with meals Active 4 units Vitamin D3 [facility] 17037567338 1000 UNIT Orally Once a day Active 1 capsule Cinnamon [facility] 10750487403 500 MG Orally Active not defined Duexis [facility] 63280588117 800-26.6 MG Orally PRN Mar 18, 2018 Active 1 tablet Losartan Potassium-HCTZ [facility] 16108192446 50-12.5 MG Orally Once a day Active 1 tablet Tobramycin Sulfate [facility] [address]-06 0.3 % Ophthalmic Twice a day to affected eye Jun 24, 2017 Active 1 application Trulicity 1.5mg [facility] 52863198044 1.5mg/0.5mL SQ once per week Mar 18, 2018 Active 1 Magnesium [facility] 88112509671 300 MG Orally Once a day Active 1 capsule with a meal Erythromycin [facility] [address]-42 2 % Externally four times a day Inactive 1 application to affected area Jardiance [facility] 45306496300 10 mg Orally Once a day Mar 18, 2018 Active 1 tablet Metformin HCl [facility] 14654076238 1000 mg Orally twice a day (bid) Active 1 tablet CoQ-10 [facility] 18321168629 30 MG Orally Once a day Active 1 capsule with a meal Vital Signs Date/Time: Jun 24, 2017 Blood Pressure Diastolic 70 mm Hg Blood Pressure Systolic 128 mm Hg Height 62 in Cardiac Monitoring Heart Rate 107 /min Results No Known Results Summary Purpose eClinicalWorks Submission
--- OUTSIDE RECORDS SUMMARY | 2018-07-09 07:09 | XMS REPORT ---
Author Author Lora Silva Organization eClinicalWorks Address Unknown Phone Unavailable Care Team Providers Care Film Numberer Name Role Phone Lora Silva CP Unavailable Allergies No Known Allergies Problems Problem Type Condition Code Onset Dates Condition Status Problem Hypothyroidism, unspecified type E03.9 Active Problem Type 2 diabetes mellitus with hyperglycemia E11.65 Active Problem Other chronic pain G89.29 Active Assessment Obstructive sleep apnea G47.33 Active Problem Type 2 diabetes mellitus with mild nonproliferative diabetic retinopathy with macular edema, unspecified eye E11.3219 Active Problem Chronic fatigue R53.82 Active Problem Morbid obesity E66.01 Active Problem Obstructive sleep apnea G47.33 Active Problem correction current use of insulin Z79.4 Active Problem Mixed hyperlipidemia E78.2 Active Problem BMI 45.0-49.9, adult Z68.42 Active Problem Essential hypertension I10 Active Medications No Known Medications Results No Known Results Summary Purpose eClinicalWorks Submission
--- OUTSIDE RECORDS SUMMARY | 2018-07-09 07:09 | XMS REPORT ---
Author Author Lora Silva Organization eClinicalWorks Address Unknown Phone Unavailable Care Team Providers Care Wet Finisher Wool Name Role Phone Lora Silva CP Unavailable [...] Problem Obstructive sleep apnea G47.33 Active Problem jail current use of insulin Z79.4 Active Problem Mixed hyperlipidemia E78.2 Active Problem BMI 45.0-49.9, adult Z68.42 Active Problem Essential hypertension I10 Active Medications No Known Medications Results No Known Results Summary Purpose eClinicalWorks Submission
--- OUTSIDE RECORDS SUMMARY | 2018-07-09 07:09 | XMS REPORT ---
Author Author Lora Silva [facility] eClinicalWorks Address Unknown Phone Unavailable Care Team Providers Care Utilization Reviewer Name Role Phone Lora Silva CP Unavailable Allergies, Adverse Reactions, Alerts Substance Reaction Event Type Zolmitriptan Info Not Available Drug Allergy Problems Problem Type Condition Code Onset Dates Condition Status Problem Type 2 diabetes mellitus with mild nonproliferative diabetic retinopathy with macular edema, unspecified eye E11.3219 Active Problem Other chronic pain G89.29 Active Problem Hypothyroidism, unspecified type E03.9 Active Problem Morbid obesity E66.01 Active Problem BMI 45.0-49.9, adult Z68.42 Active Problem Chronic fatigue R53.82 Active Problem Mixed hyperlipidemia E78.2 Active Problem Type 2 diabetes mellitus with hyperglycemia E11.65 Active Problem Essential hypertension I10 Active Problem rn urgent care current use of insulin Z79.4 Active Assessment Tachycardia R00.0 Active Assessment Vomiting, intractability of vomiting not specified, presence of nausea not specified, unspecified vomiting type R11.10 Active Assessment Hypothyroidism, unspecified type E03.9 Active Assessment Chronic fatigue R53.82 Active Assessment Essential hypertension I10 Active Assessment Gastroenteritis K52.9 Active Assessment Type 2 diabetes mellitus with mild nonproliferative diabetic retinopathy with macular edema, unspecified eye E11.3219 Active Medications Medication Code System Code Instructions Start Date End Date Status Dosage Metformin HCl [facility] 43238375879 1000 mg Orally twice a day (bid) Active 1 tablet Tobramycin Sulfate [facility] [address]-60 0.3 % Ophthalmic Twice a day to affected eye Jun 24, 2017 Active 1 application Vitamin D3 ND 91496469457 1000 UNIT Orally Once a day Active 1 capsule Duexis [facility] 64644686651 800-26.6 MG Orally PRN Mar 18, 2018 Active 1 tablet Multivitamin [facility] [address] - Orally Active not defined Lantus SoloStar [facility] 12205954896 100 UNIT/ML Subcutaneous daily Active 25 units Chromium Picolinate [facility] 37677089174 200 MCG Orally Active not defined Cinnamon ND 24361901049 500 MG Orally Active not defined Jardiance [facility] 09850543704 10 mg Orally Once a day Mar 18, 2018 Active 1 tablet Losartan Potassium-HCTZ [facility] 54886991892 50-12.5 MG Orally Once a day Active 1 tablet Gemfibrozil [facility] 84811981793 600 MG Orally Twice a day Active 1 tablet Bishop Thyroid [facility] 20355475135 90 MG Orally Once a day Active 1 tablet Magnesium [facility] 35523825004 300 MG Orally Once a day Active 1 capsule with a meal Humalog KwikPen [facility] [address]-36 100 UNIT/ML Subcutaneous TID with meals Active 10 -15 units Trulicity 1.5mg [facility] 60855155125 1.5mg/0.5mL SQ once per week Mar 18, 2018 Active 1 CoQ-10 [facility] 27607520571 30 MG Orally Once a day Active 1 capsule with a meal Vital Signs Date/Time: October 01, 2017 BMI 50.84 Index Weight 278 lbs Height 62 in Temperature 98.7 F Cardiac Monitoring Heart Rate 107 /min Blood Pressure Diastolic 66 mm Hg Blood Pressure Systolic 110 mm Hg Results Name Result Date Reference Range Unit Abnormality Flag Hemoglobin A1c ----Hemoglobin A1c 7.3 20171001 4.8-5.6 % H Comp. Metabolic Panel (14) ----A/G Ratio 1.6 20171001 1.2-2.2 ----Globulin, Total 2.5 20171001 1.5-4.5 g/dL ----Alkaline Phosphatase 64 20171001 39-117 IU/L ----Bilirubin, Total <0.2 20171001 0.0-1.2 mg/dL ----Chloride 107 20171001 96-106 mmol/L H ----ALT (SGPT) 29 20171001 0-32 IU/L ----Potassium 3.6 20171001 3.5-5.2 mmol/L ----AST (SGOT) 24 20171001 0-40 IU/L ----Sodium 143 20171001 134-144 mmol/L ----BUN/Creatinine Ratio 24 20171001 9-23 H ----eGFR If Africn Am 118 20171001 >59 mL/min/1.73 ----Calcium 9.2 20171001 8.7-10.2 mg/dL ----Carbon Dioxide, Total 24 20171001 18-29 mmol/L ----Albumin 4.0 20171001 3.5-5.5 g/dL ----Protein, Total 6.5 20171001 6.0-8.5 g/dL ----Glucose 107 20171001 65-99 mg/dL H ----BUN 14 20171001 6-24 mg/dL ----Creatinine 0.59 20171001 0.57-1.00 mg/dL ----eGFR If NonAfricn Am 103 20171001 >59 mL/min/1.73 CBC ----MCHC 31.4 20171005 ----MCH 30.8 20171005 ----Platelets 267 20171005 ----RDW 13.2 20171005 ----NEUTROPHILS lym- 1.4,mid- 0.6, gra- 2.4 20171005 ----Hematocrit 44.2 20171005 ----MCV 98.1 20171005 ----RBC 4.51 20171005 ----Hemoglobin 13.9 20171005 ----WBC 4.4L 20171005 Summary Purpose eClinicalWorks Submission
--- OUTSIDE RECORDS SUMMARY | 2018-07-09 07:09 | XMS REPORT | Encounter Summary ---
Author Organization Unknown Address [address] [place] [id number] Phone [phone] Care Team Providers Care Cutter Banana Room Name Role Phone Lora Aden 3 [phone] Reason for Visit Left Medical Complaint Instructions 1. Allergic rhinitis allergies: care instructions fluticasone 50 mcg/actuation nasal spray,suspension azelastine 137 mcg (0.1 %) nasal spray aerosol 2. Hordeolum externum of upper eyelid erythromycin 5 mg/gram (0.5 %) eye ointment 3. Body mass index 40+ - severely obese 4. Essential hypertension high blood pressure: care instructions 5. Hyperlipidemia high cholesterol: care instructions 6. Type 2 diabetes mellitus without complication type 2 diabetes: care instructions Discussion Note Pt is in NAD; Verbalizes understanding of all instructions with no questions at this time. Plan of Care Patient Instructions Proper hand hygiene after contact with eyes, do not share pillows/clothing. Do not not wear any contacts and or makeup for the next 7 days. Use a different tissue to clean each eye. Apply topical antibiotic as directed. You will become non- contagious after 28 hrs of proper antibiotic use. Alternate with Ibuprofen and acetaminophen every 4hrs as needed for pain. Start warm compresses. Take medications as prescribed. Return to clinic or follow up with your PCP or community administrator within 2-3 days if symptoms worsen as discussed. Report to ER in case of emergency, sharp eye pain or vision loss. Use fluticasone and azelastine nasal sprays as directed for nasal congestion and runny nose. Take over the counter Xyzal for allergy like symptoms like runny nose, sneezing and watery eyes. Take medications as prescribed and follow up with a PCP or equipment specialist within 2-3 if symptoms worsen as discussed. Recommend monitor BP and blood sugars at home and document, bring BP and blood sugar log to PCP for review. Recommend follow a low sodium diet and exercise 30-45 mins/d 3-4 days a week. Reminders Provider Appointments None recorded. Lab None recorded. Referral None recorded. Procedures None recorded. Surgeries None recorded. Imaging None recorded. Medications Name Start Date acetaminophen 300 mg-codeine 30 mg tablet TK ONE TABLET PO EVERY 4 HOURS PRN FOR PAIN [place] Thyroid 90 mg tablet TK 1 T PO QD armour thyroid 90 mg tabs azelastine 137 mcg (0.1 %) nasal spray aerosol [place] 2 sprays twice a day by intranasal route as directed for 30 days. BD Insulin Pen Needle UF Short 31 gauge x 5/16" U UTD QID Duexis 800 mg-26.6 mg tablet erythromycin 5 mg/gram (0.5 %) eye ointment APPLY 1 CM RIBBON INTO AND ONTO THE UPPER EYELID IN THE AFFECTED EYE(S) BY OPHTHALMIC ROUTE 4 TIMES PER DAY x 7 days fluticasone 50 mcg/actuation nasal spray,suspension [place] 2 sprays every day by intranasal route as needed for 10 days. gemfibrozil 600 mg tablet TK 1 T PO BID humalog kwikpen 100 unit/ml sopn Jardiance 10 mg tablet TK 1 T PO QD Lantus Solostar 100 unit/mL (3 mL) subcutaneous insulin pen USE 25 UNITS SC QD losartan 50 mg-hydrochlorothiazide 12.5 mg tablet TK 1 T PO QD losartan/hct tab 50-12.5 metformin 1,000 mg tablet TK 1 T PO BID NovoTwist 32 gauge x 1/5" needle tizanidine 4 mg capsule TAKE 1 C PO TID PRN Trulicity 1.5 mg/0.5 mL subcutaneous pen injector INJ CONTENTS OF 1 PEN UNDER THE SKIN Q WEEK trulicity 1.5 mg/0.5ml sopn Medications Administered None recorded. Vitals Height Weight BMI Blood Pressure 5 ft 2 in 265 lbs 48.5 kg/m2 128/84 mm[Hg] Lab Results None recorded. Allergies Code Code System Name Reaction Severity Status Onset Tagamet Active 326400 RxNorm Zomig Active Problems Name Status Onset Date Source Acute Sinusitis Active Encounter Acute Pharyngitis Active Encounter Procedures Date Name Performed by Information not available Tonsillectomy Information not available Vaccine List None recorded. Social History Smoking Status Never Smoker Past Encounters 06/17/2017 Allergic Rhinitis; Hordeolum Externum of Upper Eyelid; Body Mass Index 40+ - Severely Obese; Essential Hypertension; Hyperlipidemia; Type 2 Diabetes Mellitus without Complication MARY ANN KeaneP-C: [address] [place] [address], Ph. History of Present Illness Eye Complaint Reported By: Patient HPI: Location: left. Quality: ; tender. Severity: pain level 3/10. Duration constant. Onset/Timing: first episode, gradual onset, x 3days. Context no previous history of Iritis, no previous history of recurrent corneal erosion, no one else with similar symptoms, Seasonal Allergies; Pt has h/o HTN, HLD, and type II DM managed by her PCP. Modifying factors nothing gives relief. Associated Symptoms: vision intact, no sensitivity to light, no foreign body sensation in eyes, no pain in the eyes, no pain with eye movement, no discharge from eyes, no headache, no fever/chills, no muscle aches; nasal congestion, rhinorrhea, sneezing and edematous and erythematous nodular lesion on left upper eyelid (laterally) Gmarj-Kahhsebxtq-Gyglvrs Reported By: Patient HPI: Location: head/sinuses. Quality: nasal/sinus congestion. Duration: 3days. Severity: moderate. Onset/Timing: gradual. Context: no sick contacts, no foreign travel, non-smoker, allergies; Pt has h/o HTN, HLD, and type II DM managed by her PCP. Modifying factors: ; None. Associated Symptoms: no sputum production, no shortness of breath, no wheezing, no change in number of pillows needed to sleep at night, no sweats, no significant weight gain, no significant weight loss, no morning cough, no sore throat, no vomiting, no diarrhea, no rash, no nausea, no fever, no muscle aches, no headache; nasal congestion, rhinorrhea, sneezing and edema and erythema of left upper eyelid x 3 days Review of Systems:ROS as noted in the HPI Review of Systems Basic Reported By: Patient Physical Exam Adult Basic, 14-21 Yr Male, Adult Female Complete, 7-10 Yr Female Reported By: Patient Constitutional: General Appearance: obese. Level of Distress: NAD. Ambulation: ambulating normally Psychiatric: Mental Status: active and alert, normal affect, normal mood. Orientation: to time, to place, to person Eyes: Lids and Conjunctivae: non-injected, no discharge, no pallor; left upper eyelid with 0.5x0.5 nodular edematous and erythematous lesion. Area is warm to the touch and tender (laterally) to touch lesion. No pus. Pupils: PERRLA, equal size, round, reactive to light. Corneas: grossly intact. EOM: EOMI. Sclerae: non-icteric. Vision: ; Peripheral vision normal bilaterally Fpj-Grbj-Aiyug-Throat: Ears: no lesions on external ear, no outer ear tenderness, EACs clear, TMs clear. Hearing: no hearing loss. Nose: no lesions on external nose, nares patent, no septal deviation, nasal passages clear, no sinus tenderness, nasal discharge--rhinorrhea, post nasal drip; pale and edematous nasal turbinates bilaterally. Lips, Teeth, and Gums: no mouth or lip ulcers, no bleeding gums, normal dentition. Oropharynx: moist mucous membranes, no erythema, no exudates, tonsils absent. Tonsils: no erythema, no exudate Neck: Lymph Nodes: no cervical LAD Lungs: Respiratory effort: no dyspnea, no tachypnea, no use of accessory muscles, no intercostal retractions. Auscultation: breath sounds normal, clear to auscultation, no wheezing, no rales/crackles, no rhonchi, no retractions Cardiovascular: Heart Auscultation: RRR, no murmurs Neurologic: Gait and Station: normal gait, normal station Skin: Inspection and palpation: no rash
--- NOTE | 2018-07-09 09:14 | Diagnostic Imaging Report ---
EXAM: ABDOMEN-1VIEW (KUB) DATE: 07/09/2018 8:11 AM INDICATION: Preop ESWL COMPARISON: CT abdomen/pelvis, 05/17/2018 FINDINGS: 2 supine views of the abdomen show a normal distribution of air in the small and large bowel. There is a 10 mm calcification projected on the lower pole of the right kidney, partially obscured by respiratory motion. This is compatible with the calculus seen on previous CT. No other abnormal soft tissue calcification is identified. The 5 mm right lower pole calculus and 2 mm mid left renal calculus are not identified and may be obscured by motion or overlying bowel material. Lung bases appear clear. IMPRESSION: 1. No bowel dilatation or evidence for obstruction. 2. There is a 10 mm calcification at the lower pole right kidney compatible with calculus seen on previous CT. This is partially obscured by respiratory motion. Other calculi noted on the CT are not visualized. Signed by: Dr. Monty Mahmood M.D. on 07/09/2018 9:10 AM
[2018-07-09 11:15] VITALS: BP 119/76
--- NOTE | 2018-07-19 02:10 | Operative Report ---
DATE OF PROCEDURE: 07/09/2018 SURGEON: Guillermo Duran MD PREOPERATIVE DIAGNOSES: 1. Right nephrolithiasis. 2. Right renal colic. 3. Urinary tract infections. 4. Mixed type urinary incontinence. POSTOPERATIVE DIAGNOSES: 1. Right nephrolithiasis. 2. Right renal colic. 3. Urinary tract infections. 4. Mixed type urinary incontinence. 5. Mild cystocele. 6. Mild rectocele. 7. Atrophic (senile) vaginitis. OPERATIONS PERFORMED: Note, these are all staged procedures as part of a multi-stage and multi-step process in managing the patient's urolithiasis. 1. Right-sided extracorporeal shockwave lithotripsy (surgery performed for the right nephrolithiasis). 2. Cystourethroscopy with bilateral ureteral catheterization and retrograde ureteropyelography (surgery performed for the urinary tract infections). 3. Interpretation of retrograde ureteropyelography. 4. Supervision of fluoroscopy, no radiologist present. 5. Cystourethroscopy with insertion of right indwelling ureteral stent (separate surgery performed to prevent renal colic as the patient passes her stone fragments). 6. Pelvic examination under anesthesia. ANESTHESIA: General. COMPLICATIONS: None. CLINICAL SUMMARY: Paty Song is a 57-year-old woman with bilateral nephrolithiasis and urinary tract infection. She is brought for the above procedures. She is aware of the risks of bleeding, infection, injury to adjacent structures, and need for additional procedures and elected to proceed. OPERATIVE PROCEDURE IN DETAIL: Informed consent was verified. Paty Song was properly identified, taken to the operating room, and placed on the lithotripsy table in supine position. Anesthesia was uneventfully begun. The patient's right large 15 mm nephrolithiasis was localized with biplanar fluoroscopy. A total of 3000 shocks were delivered with excellent fragmentation noted. The patient was then carefully gently repositioned in the dorsal lithotomy position. All pressure points well padded. Her genitalia were prepared and draped in usual sterile fashion. A 22.5-T[place] cystoscope sheath was inserted into the patient's urethra and bladder was drained. Panendoscopy revealed no suspicions mucosal lesions, no tumors, no stones, and no diverticulum. Normally positioned configured ureteral orifices were identified. The ureteral catheter was used to cannulate each ureter and retrograde ureteropyelograms were performed. With cystoscopic and fluoroscopic guidance, the right-sided indwelling ureteral stent was then placed. It was curled in the patient's kidney as well as the patient's bladder. The retaining suture was cut short. Interpretation of Retrograde Ureteropyelography: Contrast was instilled in retrograde fashion bilaterally. On the left side, we could not visualize the 2 mm stone noted on CT. We, however, were able to visualize the filling defects in the right kidney corresponding to stone debris as well as blood clots from the lithotripsy. The stent was in good position, coiled the patient's kidneys as well as the patient's bladder at the end of the case. The patient's bladder was then drained and cystoscope was withdrawn. Pelvic examination revealed atrophic vaginitis with a grade 1 cystorectocele. No suspicious mucosal lesions were identified. There were no abnormal palpable pelvic masses could be appreciated. The patient was then uneventfully reversed from anesthesia and taken to the recovery room in stable condition. There were no complications to the procedure. She tolerated the procedure well. Plans will be to return the patient back to the operating room in several weeks to remove her stent, performing right ureteroscopy and indicated procedures. Guillermo Duran MD [place]/VISHAL /[id number]
== END | disposition home or self-care (01) ==
LOC: OR 07:05
PROVIDERS: ATTEND Urology
DX: N20.0 Calculus of kidney (principal); N23 Unspecified renal colic; N39.0 Urinary tract infection, site not specified; N39.46 Mixed incontinence; N81.10 Cystocele, unspecified; N81.6 Rectocele; N95.2 Postmenopausal atrophic vaginitis; Z01.812 Encounter for preprocedural laboratory examination
CPT/HCPCS: 36415 ×2; 50590; 52332; 74018; 80048; 82948; 93005; C2617; J0696; J1100; J2001; J2250; J2405; J2704; J2765; Q9967

== ENCOUNTER → 2018-07-30 | Day surgery (SDC) | payer BC ==
--- NOTE | 2018-07-28 13:08 | Diagnostic Imaging Report ---
EXAMINATION: CHEST 2 VIEWS INDICATION: Pre-admit. COMPARISON: CT Abdomen/Pelvis 05/17/2018 and KUB 07/09/18. FINDINGS: TUBES and LINES: None. LUNGS: Lungs are well inflated. Lungs are clear. There is no evidence of pneumonia or pulmonary edema. PLEURA: No pleural effusion or pneumothorax. HEART AND MEDIASTINUM: The cardiomediastinal silhouette is unremarkable. BONES AND SOFT TISSUES: No acute osseous lesion. Soft tissues are unremarkable. UPPER ABDOMEN: No free air under the diaphragm. IMPRESSION: No acute radiographic abnormality. Signed by: Dr. Khoa Pryor MD on 07/28/2018 1:05 PM
[~2018-07-30] MED LIST changes: +GENTAMICIN 80MG/NS 100 ML 200 ML IV ONE; +GLYCOPYRROLATE INJ 1MG/ 5 ML SYR ONE; -INSULIN REGULAR, HUMAN 100 UNIT/1 ML 3ML VIAL ONE; -METOCLOPRAMIDE HCL 10 MG/2ML VIAL ONE; +MORPHINE SULFATE INJ 4 MG/ML INJ 1ML ONE; +NEOSTIGMINE 5 MG/5ML SYR ONE; +PHENYLEPHRINE HCL 1% 10 MG/ML VIAL ONE; +ROCURONIUM BROMIDE 10 MG/ML 5ML VIAL ONE; +SUCCINYLCHOLINE 200 MG/10 ML SYR ONE
--- OUTSIDE RECORDS SUMMARY | 2018-07-30 05:50 | XMS REPORT | Continuity of Care Document ---
Author Author [facility] Interface Address Unknown Phone Unavailable Problems Problem [...] 07/08/2018 [facility] jail current use of insulin Active Problem 07/08/2018 [facility] Mixed hyperlipidemia Active Problem 07/08/2018 [facility] Morbid obesity Active Problem 07/08/2018 [facility] Chronic fatigue Active Problem 07/08/2018 [facility] History of kidney stones Active Problem 07/08/2018 [facility] Primary insomnia Active Problem 07/08/2018 [facility] Diabetes mellitus with hyperglycemia Active Problem 07/08/2018 [facility] Obstructive sleep apnea Active Problem 07/08/2018 [facility] Hordeolum of left eye, unspecified eyelid, unspecified hordeolum type Active Diagnosis 06/27/2017 [facility] Left medial knee pain Active Diagnosis 03/24/2018 [facility] Tachycardia Active Diagnosis 10/06/2017 [facility] Vomiting, intractability of vomiting not specified, presence of nausea not specified, unspecified vomiting type Active Diagnosis 10/06/2017 [facility] Gastroenteritis Active Diagnosis 10/06/2017 [facility] Acute Sinusitis Problem 06/17/2017 [facility] Acute Pharyngitis Problem 06/17/2017 [facility] Medications Medication Details Route Status Patient Instructions Ordering Provider Order Date Source Trulicity 1.5mg 1.5mg/1 pen SQ Active 1.5mg/0.5mL SQ Once a week [place] 07/07/2018 [facility] Needle (Disp) as directed DX:E11.65 Active 31G X 5/16" DX:E11.65 four times a day (qid) [place] 06/11/2018 [facility] Tizanidine HCl 1 tablet by mouth Active 4 mg by mouth once every night [place] 03/23/2018 [facility] Trulicity 1.5mg [...] a day to affected eye [place] 06/24/2017 [facility] Humalog KwikPen 10 -15 units Subcutaneous Active 100 UNIT/ML Subcutaneous TID with meals Carlos [facility] Cinnamon not defined Orally Active 500 MG Orally Carlos [facility] Losartan Potassium-HCTZ 1 tablet Orally Active 50-12.5 MG Orally Once a day Carlos [facility] Vitamin D3 1 capsule Orally Active 1000 UNIT Orally Once a day Carlos [facility] Lantus SoloStar 14 units Subcutaneous Active 100 UNIT/ML Subcutaneous twice a day (bid) Carlos [facility] Chromium Picolinate not defined Orally Active 200 MCG Orally Carlos [facility] Multivitamin not defined Orally Active - Orally Carlos [facility] CoQ-10 1 capsule with a meal Orally Active 30 MG Orally Once a day Carlos [facility] Gemfibrozil 1 tablet Orally Active 600 MG Orally Twice a day Carlos [facility] Magnesium 1 capsule with a meal Orally Active 300 MG Orally Once a day Carlos [facility] Metformin HCl 1 tablet Orally Active 1000 mg Orally twice a day (bid) Carlos [facility] [place] Thyroid 1 tablet Orally Active 90 MG Orally Once a day Carlos [facility] Erythromycin 1 application to affected area Externally Active 2 % Externally four times a day Ferdinand Ortiz [facility] HydrOXYzine HCl 1 tablet as needed Orally Active 10 mg Orally at HS PRN Carlos [facility] Humalog KwikPen 10 -15 units Subcutaneous Active 100 UNIT/ML Subcutaneous TID with meals Ferdinand Ortiz [facility] Acetaminophen 300 MG / Codeine Phosphate 30 MG Oral Tablet acetaminophen 300 mg-codeine 30 mg tablet TK ONE TABLET PO EVERY 4 HOURS PRN FOR PAIN Active [facility] thyroid (FCI) 90 MG Oral Tablet [[place] Thyroid] [place] Thyroid 90 mg tablet TK 1 T PO QD Active [facility] armour thyroid 90 mg tabs armour thyroid 90 mg tabs Active [facility] Azelastine hydrochloride 0.137 MG/ACTUAT Metered Dose Nasal [place] azelastine 137 mcg (0.1 %) nasal spray aerosol [place] 2 sprays twice a day by intranasal route as directed for 30 days. Active [facility] BD Insulin Pen Needle UF Short 31 gauge x 5/16" BD Insulin Pen Needle UF Short 31 gauge x 5/16" U UTD QID Active [facility] Famotidine 26.6 MG / Ibuprofen 800 MG Oral Tablet [Duexis] Duexis 800 mg-26.6 mg tablet Active [facility] Erythromycin 0.005 MG/MG Ophthalmic Ointment erythromycin 5 mg/gram (0.5 %) eye ointment APPLY 1 CM RIBBON INTO AND ONTO THE UPPER EYELID IN THE AFFECTED EYE(S) BY OPHTHALMIC ROUTE 4 TIMES PER DAY x 7 days Active [facility] Fluticasone propionate 0.05 MG/ACTUAT Metered Dose Nasal [place] fluticasone 50 mcg/actuation nasal spray,suspension [place] 2 sprays every day by intranasal route as needed for 10 days. Active [facility] Gemfibrozil 600 MG Oral Tablet gemfibrozil 600 mg tablet TK 1 T PO BID Active [facility] humalog kwikpen 100 unit/ml sopn humalog kwikpen 100 unit/ml sopn Active [facility] empagliflozin 10 MG Oral Tablet [Jardiance] Jardiance 10 mg tablet TK 1 T PO QD Active [facility] 3 ML Insulin Glargine 100 [...] TK 1 T PO BID Active [facility] NovoTwist 32 gauge x 1/5" needle NovoTwist 32 gauge x 1/5" needle Active [facility] tizanidine 4 MG Oral Capsule tizanidine 4 mg capsule TAKE 1 C PO TID PRN Active [facility] 0.5 ML dulaglutide 3 MG/ML Auto-Injector [Trulicity] Trulicity 1.5 mg/0.5 mL subcutaneous pen injector INJECT THE CONTENTS OF 1 PEN UNDER THE SKIN ONCE A WEEK Active [facility] trulicity 1.5 mg/0.5ml sopn trulicity 1.5 mg/0.5ml sopn Active [facility] Amoxicillin 875 MG / Clavulanate [...] azelastine hcl 0.1 % soln Active [facility] fluticasone propionate 50 mcg/act susp fluticasone propionate 50 mcg/act susp Active [facility] gemfibrozil 600 mg tabs gemfibrozil 600 mg tabs Active [facility] 3 ML Insulin Lispro 100 UNT/ML Pen Injector [Humalog] Humalog KwikPen (U-100) Insulin 100 unit/mL subcutaneous INJ 10 -15 UNITS UNDER THE SKIN TID WITH MEALS Active [facility] Hydroxyzine Hydrochloride 10 MG Oral Tablet hydroxyzine HCl 10 mg tablet TK 1 T PO HS PRN Active [facility] hydroxyzine hcl 10 mg tabs hydroxyzine hcl 10 mg tabs Active [facility] jardiance 10 mg tabs jardiance 10 mg tabs Active [facility] lantus solostar 100 unit/ml sopn lantus solostar 100 unit/ml sopn Active [facility] metformin hcl 1000 mg tabs metformin hcl 1000 mg tabs Active [facility] tizanidine 4 MG Oral Tablet tizanidine 4 mg tablet TK 1 T PO Q NIGHT Active [facility] tizanidine hcl 4 mg tabs tizanidine hcl 4 mg tabs Active [facility] Allergies, Adverse Reactions, Alerts Substance [...] Date Status Source [place] - [facility] - [id number] ANN SorensenP-C: [id number] [address], Ph. [id number] Lois Santillan 06/17/2017 [facility] [place] - [facility] - [id number] Marion Dinh, [employer]: [address] [place] [address], Ph. [id number] Marion Dinh 04/26/2018 [facility] Procedures Procedure Code Date Perfomer Comments Source [facility] Tonsillectomy [facility]
--- NOTE | 2018-07-30 06:48 | Diagnostic Imaging Report ---
EXAM: ABDOMEN-1VIEW (KUB), DATE: 07/30/2018 6:13 AM INDICATION: Right kidney stone. COMPARISON: 07/09/2018. FINDINGS: LINES/TUBES: Right double-J ureteral stent is adequate in position, unchanged. BOWEL PATTERN: No evidence for obstruction. SOFT TISSUES: 1.0 cm calcific density projected on the lower pole of the right renal shadow, unchanged. LUNG BASES: Not included BONES: No acute findings. IMPRESSION: 1.0 cm calcific density projected on the lower pole of the right renal shadow, unchanged. Signed by: Dr. Janet Rangel M.D. on 07/30/2018 6:44 AM
[2018-07-30 10:15] VITALS: BP 103/56
--- NOTE | 2018-09-15 06:37 | Operative Report ---
DATE OF PROCEDURE: 07/30/2018 SURGEON: Guillermo Duran MD PREOPERATIVE DIAGNOSES: 1. Right nephrolithiasis. 2. Right indwelling ureteral stent. POSTOPERATIVE DIAGNOSES: 1. Right nephrolithiasis. 2. Right indwelling ureteral stent. 3. Grade 1 cystocele. 4. Grade 3 rectocele. 5. Mixed type urinary incontinence. 6. Atrophic (senile) vaginitis. OPERATIONS PERFORMED: Note, these were all staged procedures as part of a multi-stage and multi-step process in managing the patient's urolithiasis. 1. Cystourethroscopy with complicated removal of right indwelling ureteral stent (separate procedure performed for the diagnosis of stent on the separate scope). 2. Right extensive and repeated flexible ureteral pyeloscopy with manipulation and extraction of calculus stones (separate procedure performed for the nephrolithiasis). 3. Radiological services for supervision and interpretation of ureteroscopy. 4. Interpretation of retrograde ureteropyelography. 5. Supervision of fluoroscopy, no radiologist present. 6. Pelvic examination under anesthesia. ANESTHESIA: General. COMPLICATIONS: None. CLINICAL SUMMARY: Paty Song is a 57-year-old woman with nephrolithiasis, who underwent ureteral stenting. She underwent right ESWL and she was brought to the operating room today in hopes of rendering her stent free and stone free. She is aware of the risks of bleeding, infection, injury to adjacent structures, need for additional procedures and elected to proceed. OPERATIVE PROCEDURE IN DETAIL: Informed consent was verified. Paty Song was properly identified, taken to the operative room, placed on the cystoscopy table in supine position. Anesthesia was uneventfully begun. The patient was then carefully gently repositioned in the dorsal lithotomy position with all pressure points well padded. Her genitalia were prepared and draped in usual sterile fashion. The cystoscope sheath with obturator in place was atraumatically inserted. The patient's urethra and bladder were drained. Panendoscopy of the bladder revealed no suspicious mucosal lesions. No tumors, no stones, and no diverticula. There was mild erythema around the right ureteral orifice. We identified a stent that was not encrusted emerging. A guidewire was then placed alongside of the stent and guided to the level of the patient's kidney. The stent was then grasped, completely removed and discarded. Semi-rigid ureteroscopy was then performed in the distal right ureter, exhibited no stones. A secondary guidewire was utilized. The flexible ureteroscopy sheath was then atraumatically inserted and guided to the level of the proximal ureter. The flexible ureteroscope was then placed through this sheath and brought up to the level of the patient's kidney. Panendoscopy revealed that the previously located lower pole of the calyx, which exhibited a larger stone previously now contained countless smaller stones. Numerous and countless passes were made with the ureteroscope each time grasping one or two small stone fragments with the Nitinol tipless basket and then atraumatically extracting it down utilizing the flexible ureteroscopy sheath to protect the ureter from injury. Once all the graftable stone fragments were removed. Irrigation was performed to dislodge the fine sand which should be passable. Interpretation of retrograde ureteropyelography contrast was instilled in a retrograde fashion via the ureteroscope. There was mild fullness of the collecting system. There was some ptosis of the kidney and some distortion of the intrarenal anatomy. No suspicious mucosal lesions were identified. Unobstructed drainage was observed fluoroscopically. Filling defect could not be well appreciated under the study. We carefully examined the ureter as we exited. We will do our best to leave the patient without a stent in hopes that she does not become symptomatic nor has any pain. The bladder was drained. The cystoscope was withdrawn. Pelvic examination under anesthesia revealed a grade 1 cystocele, grade 3 rectocele. There was atrophic (senile) vaginitis. The patient was noted uneventfully reversed from anesthesia and taken to recovery room in stable condition. Explicit postop instructions were given. We will follow the patient up in the office. The followup for this patient, metabolic stone workup will be performed followed by ongoing urological followup for this patient, who is at significant risk of making recurrent stones. Guillermo Duran MD [place]/MODL /[id number] cc: Lora Aden DO
== END | disposition home or self-care (01) ==
LOC: OR 05:45
PROVIDERS: ATTEND Urology
DX: N20.0 Calculus of kidney (principal); Z46.6 Encounter for fitting and adjustment of urinary device; N81.10 Cystocele, unspecified; N81.6 Rectocele; N39.46 Mixed incontinence; N95.2 Postmenopausal atrophic vaginitis; N28.83 Nephroptosis; G47.33 Obstructive sleep apnea (adult) (pediatric); I10 Essential (primary) hypertension; E11.9 Type 2 diabetes mellitus without complications; E03.9 Hypothyroidism, unspecified; Z88.8 Allergy status to other drugs, medicaments and biological substances; Z91.018 Allergy to other foods; Z01.818 Encounter for other preprocedural examination; Z79.82 Long term (current) use of aspirin; Z79.4 Long term (current) use of insulin
CPT/HCPCS: 36415; 52352; 71046; 74420; 82948; 88300; C1758; J0696; J1100; J1580; J2001; J2250; J2270; J2370; J2405; J2704; J3490; Q9967; 74018